=== PATIENT | female | born 1950 | race Caucasian/White ===

== ENCOUNTER 2019-05-17 09:55 | Inpatient (IN) ==
[2019-05-18] MEDS ORDERED: Loratadine 10 MG TABLET PO PRN (14:10)
[2019-05-18] MEDS ORDERED: NON-FORMULARY MEDICATION 1 EACH EACH (Alendronate Sodium [Fosamax] 70 MG) PO SCH (14:15)
[2019-05-18] MEDS ORDERED: *HR* OxyCODONE Immed Rel 5 MG TABLET PO PRN (14:17)
[2019-05-18] MEDS ORDERED: NON-FORMULARY MEDICATION 1 EACH EACH PO SCH (17:30)
[2019-05-18] MEDS: *HR* Enoxaparin 30 MG/0.3 ML SYRINGE SQ SCH (17:33)
[2019-05-18] MEDS: tiZANidine 4 MG TABLET PO PRN (17:56)
[2019-05-18] MEDS: Acetaminophen 325 MG TABLET PO PRN (21:48)
[2019-05-19] MEDS: *HR* Enoxaparin 30 MG/0.3 ML SYRINGE SQ SCH ×2 (05:58→17:37)
[2019-05-19 06:46] LABS: Basophils % 0.5 %; Eosinophils # 0.2 K/mcL (0.0-0.6); Eosinophils % 2.1 %; Hematocrit 42.4 % (35.3-44.9); Hemoglobin 14.6 g/dL (11.5-15.4); Immature Granulocytes % 0.5 % (0-4); Lymphocytes # 2.2 K/mcL (0.6-4.6); Lymphocytes % 28.9 %; Mean Corpuscular HGB Conc 34.4 g/dL (31.6-35.5); Mean Corpuscular Hemoglobin 32.7 pg (28.0-33.3); Mean Corpuscular Volume 94.9 fL (83.0-100.0); Mean Platelet Volume 8.5 fL (9.4-12.4); Monocytes # 0.8 K/mcL (0.0-1.3); Monocytes % 10.6 %; Neutrophils # 4.5 K/mcL (1.6-8.9); Platelet Count 321 K/mcL (140-400); Red Blood Count 4.47 M/mcL (3.82-4.97); Red Cell Distribution Width 13.6 % (11.5-14.5); Segmented Neutrophils % 57.4 %; White Blood Count 7.8 K/mcL (4.3-11.1)
[2019-05-19 07:04] LABS: BUN/Creatinine Ratio 22 (6-26); Blood Urea Nitrogen 15 mg/dL (8-23); Calcium 8.6 mg/dL (8.6-10.3); Carbon Dioxide 27 mEq/L (23-29); Chloride 102 mEq/L (98-107); Glucose 110 mg/dL (70-105); Osmolality,Calculated 281 (280-300); Potassium 3.9 mEq/L (3.5-5.1); Sodium 135 mEq/L (136-145); eGFR For African Americans > 60 (> 60); eGFR For Non-African Americans > 60 (> 60)
[2019-05-19] MEDS: Tolterodine LA (24 HR) 2 MG CAP.ER.24H PO SCH (10:32)
[2019-05-19] MEDS: Multivit/Ca/Min/Fe/FA 1 TAB TABLET PO SCH (10:32)
[2019-05-19] MEDS: Vitamin E 200 UNIT (90MG) CAPSULE PO SCH (10:32)
[2019-05-19] MEDS: Lisinopril-HCTZ 20-12.5mg TABLET PO SCH (10:32)
[2019-05-19] MEDS: tiZANidine 4 MG TABLET PO PRN (14:41)
[2019-05-20] MEDS: *HR* OxyCODONE Immed Rel 5 MG TABLET PO PRN (02:23)
[2019-05-20] MEDS: tiZANidine 4 MG TABLET PO PRN ×3 (02:40→21:06)
[2019-05-20] MEDS: *HR* Enoxaparin 30 MG/0.3 ML SYRINGE SQ SCH ×2 (05:37→17:04)
[2019-05-20] MEDS: Multivit/Ca/Min/Fe/FA 1 TAB TABLET PO SCH (08:28)
[2019-05-20] MEDS: Lisinopril-HCTZ 20-12.5mg TABLET PO SCH (08:28)
[2019-05-20] MEDS: Vitamin E 200 UNIT (90MG) CAPSULE PO SCH (08:28)
[2019-05-20] MEDS: Tolterodine LA (24 HR) 2 MG CAP.ER.24H PO SCH (08:28)
[2019-05-20] MEDS: Acetaminophen 325 MG TABLET PO PRN ×2 (08:29→21:06)
[2019-05-20] MEDS: Cholecalciferol (D-3) 1,000 UNIT (25MCG) TABLET PO SCH (12:15)
[2019-05-21] MEDS: *HR* Enoxaparin 30 MG/0.3 ML SYRINGE SQ SCH ×2 (06:06→17:35)
[2019-05-21] MEDS: Cholecalciferol (D-3) 1,000 UNIT (25MCG) TABLET PO SCH (09:17)
[2019-05-21] MEDS: Multivit/Ca/Min/Fe/FA 1 TAB TABLET PO SCH (09:17)
[2019-05-21] MEDS: Lisinopril-HCTZ 20-12.5mg TABLET PO SCH (09:17)
[2019-05-21] MEDS: Tolterodine LA (24 HR) 2 MG CAP.ER.24H PO SCH (09:17)
[2019-05-21] MEDS: Vitamin E 200 UNIT (90MG) CAPSULE PO SCH (09:17)
[2019-05-21] MEDS: tiZANidine 4 MG TABLET PO PRN ×2 (09:17→20:45)
[2019-05-21] MEDS: Acetaminophen 325 MG TABLET PO PRN (20:45)
[2019-05-21] MEDS: Gabapentin 100 MG CAPSULE PO SCH (20:45)
[2019-05-22] MEDS: *HR* Enoxaparin 30 MG/0.3 ML SYRINGE SQ SCH ×2 (06:17→17:54)
[2019-05-22] MEDS: Vitamin E 200 UNIT (90MG) CAPSULE PO SCH (08:44)
[2019-05-22] MEDS: Cholecalciferol (D-3) 1,000 UNIT (25MCG) TABLET PO SCH (08:44)
[2019-05-22] MEDS: Multivit/Ca/Min/Fe/FA 1 TAB TABLET PO SCH (08:44)
[2019-05-22] MEDS: Lisinopril-HCTZ 20-12.5mg TABLET PO SCH (08:45)
[2019-05-22] MEDS: Gabapentin 100 MG CAPSULE PO SCH ×3 (08:45→20:01)
[2019-05-22] MEDS: Tolterodine LA (24 HR) 2 MG CAP.ER.24H PO SCH (08:45)
[2019-05-22] MEDS: Acetaminophen 325 MG TABLET PO PRN (08:54)
[2019-05-22] MEDS ORDERED: Ketorolac 15 MG/ML VIAL IM ONE (13:28)
[2019-05-22] MEDS: tiZANidine 4 MG TABLET PO PRN (13:30)
[2019-05-22] MEDS: *HR* OxyCODONE Immed Rel 5 MG TABLET PO PRN (13:36)
[2019-05-23] MEDS: *HR* Enoxaparin 30 MG/0.3 ML SYRINGE SQ SCH ×2 (06:07→17:00)
[2019-05-23] MEDS: Acetaminophen 325 MG TABLET PO PRN ×2 (10:09→17:19)
[2019-05-23] MEDS: Multivit/Ca/Min/Fe/FA 1 TAB TABLET PO SCH (10:09)
[2019-05-23] MEDS: Vitamin E 200 UNIT (90MG) CAPSULE PO SCH (10:10)
[2019-05-23] MEDS: Cholecalciferol (D-3) 1,000 UNIT (25MCG) TABLET PO SCH (10:10)
[2019-05-23] MEDS: Tolterodine LA (24 HR) 2 MG CAP.ER.24H PO SCH (10:10)
[2019-05-23] MEDS: Gabapentin 100 MG CAPSULE PO SCH ×3 (10:10→23:18)
[2019-05-23] MEDS: Lisinopril-HCTZ 20-12.5mg TABLET PO SCH (10:10)
[2019-05-24] MEDS: *HR* Enoxaparin 30 MG/0.3 ML SYRINGE SQ SCH ×2 (06:13→17:47)
[2019-05-24] MEDS: Tolterodine LA (24 HR) 2 MG CAP.ER.24H PO SCH (08:15)
[2019-05-24] MEDS: Cholecalciferol (D-3) 1,000 UNIT (25MCG) TABLET PO SCH (08:15)
[2019-05-24] MEDS: Multivit/Ca/Min/Fe/FA 1 TAB TABLET PO SCH (08:15)
[2019-05-24] MEDS: Vitamin E 200 UNIT (90MG) CAPSULE PO SCH (08:15)
[2019-05-24] MEDS: Lisinopril-HCTZ 20-12.5mg TABLET PO SCH (08:15)
[2019-05-24] MEDS: Gabapentin 100 MG CAPSULE PO SCH ×3 (08:15→20:23)
[2019-05-24] MEDS: Acetaminophen 325 MG TABLET PO PRN ×2 (08:15→17:46)
[2019-05-25] MEDS: *HR* OxyCODONE Immed Rel 5 MG TABLET PO PRN (04:53)
[2019-05-25] MEDS: *HR* Enoxaparin 30 MG/0.3 ML SYRINGE SQ SCH ×2 (04:53→16:57)
[2019-05-25 05:55] LABS: Hemoglobin 14.1 g/dL (11.5-15.4); Mean Corpuscular HGB Conc 33.6 g/dL (31.6-35.5); Mean Corpuscular Hemoglobin 32.4 pg (28.0-33.3); Mean Corpuscular Volume 96.6 fL (83.0-100.0); Mean Platelet Volume 8.5 fL (9.4-12.4); Platelet Count 411 K/mcL (140-400); Red Blood Count 4.35 M/mcL (3.82-4.97); Red Cell Distribution Width 13.5 % (11.5-14.5); White Blood Count 6.9 K/mcL (4.3-11.1)
[2019-05-25 06:10] LABS: Alanine Aminotransferase 20 Units/L (7-52); Albumin/Globulin Ratio 1.5 (1.1-2.2); Alkaline Phosphatase 57 Units/L (34-104); Aspartate Amino Transferase 18 Units/L (13-39); BUN/Creatinine Ratio 24 (6-26); Bilirubin,Total 0.4 mg/dL (0.3-1.0); Blood Urea Nitrogen 18 mg/dL (8-23); Calcium 9.3 mg/dL (8.6-10.3); Carbon Dioxide 28 mEq/L (23-29); Chloride 102 mEq/L (98-107); Globulin 2.7 g/dL (2.4-3.5); Glucose 95 mg/dL (70-105); Magnesium 2.4 mg/dL (1.6-2.6); Osmolality,Calculated 288 (280-300); Potassium 4.1 mEq/L (3.5-5.1); Sodium 138 mEq/L (136-145); Total Protein 6.7 g/dL (6.4-8.9); eGFR For African Americans > 60 (> 60); eGFR For Non-African Americans > 60 (> 60)
[2019-05-25] MEDS ORDERED: ALENDRONATE 70 MG TABLET PO SCH (08:15)
[2019-05-25] MEDS: Vitamin E 200 UNIT (90MG) CAPSULE PO SCH (08:57)
[2019-05-25] MEDS: Cholecalciferol (D-3) 1,000 UNIT (25MCG) TABLET PO SCH (08:57)
[2019-05-25] MEDS: Lisinopril-HCTZ 20-12.5mg TABLET PO SCH (08:57)
[2019-05-25] MEDS: Gabapentin 100 MG CAPSULE PO SCH ×3 (08:57→20:37)
[2019-05-25] MEDS: Tolterodine LA (24 HR) 2 MG CAP.ER.24H PO SCH (08:57)
[2019-05-25] MEDS: Multivit/Ca/Min/Fe/FA 1 TAB TABLET PO SCH (08:58)
[2019-05-26] MEDS: *HR* Enoxaparin 30 MG/0.3 ML SYRINGE SQ SCH ×2 (05:57→16:36)
[2019-05-26] MEDS: tiZANidine 4 MG TABLET PO PRN (05:57)
[2019-05-26] MEDS: Lisinopril-HCTZ 20-12.5mg TABLET PO SCH (09:07)
[2019-05-26] MEDS: Multivit/Ca/Min/Fe/FA 1 TAB TABLET PO SCH (09:07)
[2019-05-26] MEDS: Vitamin E 200 UNIT (90MG) CAPSULE PO SCH (09:07)
[2019-05-26] MEDS: Tolterodine LA (24 HR) 2 MG CAP.ER.24H PO SCH (09:07)
[2019-05-26] MEDS: Cholecalciferol (D-3) 1,000 UNIT (25MCG) TABLET PO SCH (09:07)
[2019-05-26] MEDS: Gabapentin 100 MG CAPSULE PO SCH ×3 (09:07→20:50)
[2019-05-26] MEDS: Acetaminophen 325 MG TABLET PO PRN (09:18)
[2019-05-27] MEDS: *HR* Enoxaparin 30 MG/0.3 ML SYRINGE SQ SCH ×2 (05:18→18:14)
[2019-05-27] MEDS: Vitamin E 200 UNIT (90MG) CAPSULE PO SCH (08:27)
[2019-05-27] MEDS: Gabapentin 100 MG CAPSULE PO SCH ×3 (08:27→22:09)
[2019-05-27] MEDS: Tolterodine LA (24 HR) 2 MG CAP.ER.24H PO SCH (08:27)
[2019-05-27] MEDS: Acetaminophen 325 MG TABLET PO PRN ×3 (08:27→22:07)
[2019-05-27] MEDS: Multivit/Ca/Min/Fe/FA 1 TAB TABLET PO SCH (08:27)
[2019-05-27] MEDS: Cholecalciferol (D-3) 1,000 UNIT (25MCG) TABLET PO SCH (08:27)
[2019-05-27] MEDS: Lisinopril-HCTZ 20-12.5mg TABLET PO SCH (08:28)
[2019-05-28] MEDS: *HR* Enoxaparin 30 MG/0.3 ML SYRINGE SQ SCH ×2 (03:40→17:40)
[2019-05-28] MEDS: Cholecalciferol (D-3) 1,000 UNIT (25MCG) TABLET PO SCH (07:46)
[2019-05-28] MEDS: Lisinopril-HCTZ 20-12.5mg TABLET PO SCH (07:46)
[2019-05-28] MEDS: Tolterodine LA (24 HR) 2 MG CAP.ER.24H PO SCH (07:47)
[2019-05-28] MEDS: Gabapentin 100 MG CAPSULE PO SCH ×3 (07:47→21:35)
[2019-05-28] MEDS: Vitamin E 200 UNIT (90MG) CAPSULE PO SCH (07:47)
[2019-05-28] MEDS: Multivit/Ca/Min/Fe/FA 1 TAB TABLET PO SCH (07:47)
[2019-05-28] MEDS: Acetaminophen 325 MG TABLET PO PRN (21:35)
[2019-05-29] MEDS: *HR* Enoxaparin 30 MG/0.3 ML SYRINGE SQ SCH (05:13)
[2019-05-29 06:41] VITALS: BP 115/77
[2019-05-29] MEDS: Acetaminophen 325 MG TABLET PO PRN (08:18)
[2019-05-29] MEDS: Lisinopril-HCTZ 20-12.5mg TABLET PO SCH (08:18)
[2019-05-29] MEDS: Gabapentin 100 MG CAPSULE PO SCH (08:18)
[2019-05-29] MEDS: Cholecalciferol (D-3) 1,000 UNIT (25MCG) TABLET PO SCH (08:18)
[2019-05-29] MEDS: Vitamin E 200 UNIT (90MG) CAPSULE PO SCH (08:18)
[2019-05-29] MEDS: Multivit/Ca/Min/Fe/FA 1 TAB TABLET PO SCH (08:19)
[2019-05-29] MEDS: Tolterodine LA (24 HR) 2 MG CAP.ER.24H PO SCH (08:19)
== END 2019-05-29 12:40 | disposition home health service (06) | DRG 949 ==
LOC: INPGRE 05-18 14:03
PROVIDERS: ADMIT Family Medicine; ATTEND Family Medicine